=== PATIENT | female | born 1990 | race Caucasian/White ===

== ENCOUNTER 2019-12-04 17:02 | Emergency (ER) | payer SELFPAY ==
[~2019-12-04] VITALS: Ht 170.2 cm; Wt 47.7 kg
[2019-12-04] MEDS ORDERED: IV RINGERS SOLUTION,LACTATED 1,000 ML IV SCH (17:36)
--- NOTE | 2019-12-04 17:39 | PHYS DOC ---
Past History Past Medical History: No Pertinent History, Anxiety, Asthma Smoking: Cigarettes Additional Smoking Information: 1 pack q 3 days Alcohol Use: Occasionally General Adult EDM: Chief Complaint: FEVER HPI: HPI: '".. I was checking in at work this morning.. and they said my temperature was elevated.... I have been having kind of fever, chills malaise sore throat nonproductive cough....." Patient is a 29 year old female who presents with above hx and complaints, fever, malaise, sore throat, nonproductive cough and wheezing. Patient works at [employer]. 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 No recent travel outside [facility] area. Notes history of specific ill contacts other than at work. Patient has had one episode of diarrhea. No history of bad food intake. Temperature this morning was 100.2. Work to order the get rapid testing before returning to work. Patient will be off work approximately 1 week. Patient states her symptoms are like having influenza. No history immunosuppression. Does have a history of asthma. Does have a history of anx iety. Patient states when she takes steroids for her asthma causes increase in her anxiety symptoms. Review of Systems: Review of Systems: Constitutional: History of fever or chills Eyes: Denies change in visual acuity HENT: History of nasal congestion and sore throat Respiratory: History of nonproductive cough and wheezing Cardiovascular: Denies chest pain or edema GI: history of abdominal pain, nausea, diarrhea : Denies dysuria Musculoskeletal: History of generalized myalgia, myalgia, arthralgia and malaise Integument: Denies rash Neurologic: Denies headache, focal weakness or sensory changes Endocrine: Denies polyuria or polydipsia Lymphatic: Denies swollen glands Psychiatric: Denies depression or anxiety Heart Score: Risk Factors: Risk Factors: DM, Current or recent (<one month) smoker, HTN, HLP, family history of CAD, obesity. Risk Scores: Score 0 - 3: 2.5% MACE over next 6 weeks - Discharge Home Score 4 - 6: 20.3% MACE over next 6 weeks - Admit for Clinical Observation Score 7 - 10: 72.7% MACE over next 6 weeks - Early Invasive Strategies Family History: Family History: Noncontributory Allergies: Allergies: Allergies Coded Allergies Type Severity Reaction Last Updated Verified hydrocodone Allergy Unknown 12/04/19 Yes oxycodone Allergy Unknown 12/04/19 Yes Physical Exam: PE: Constitutional: Well developed, well nourished, mild distress, non-toxic appearance. [] HENT: Normocephalic, atraumatic, bilateral external ears normal, oropharynx moist, postnasal drainage, no oral exudates, nose swollen turbinates and clear rhinorrhea Eyes: PERRLA, EOMI, conjunctiva normal, no discharge. [] Neck: Normal range of motion, no tenderness, supple, no stridor. [] Cardiovascular:Heart rate regular rhythm, no murmur [] Lungs & Thorax: Bilateral breath sounds equal apex with few scattered wheezes on auscultation [] no intercostal retractions. Saturations 100% on room air Abdomen: Bowel sounds hyperactive, soft, no tenderness, no masses, no pulsatile masses. Navel studs Skin: Warm, dry, no erythema, no rash. Multiple chigger bites Back: No tenderness, no CVA tenderness. [] Extremities: No tenderness, no cyanosis, no clubbing, ROM intact, no edema. [] No cording. Neurologic: Alert and oriented X 3, normal motor function, normal sensory function, no focal deficits noted. [] Psychologic: Affect anxious , judgement normal, mood normal. [] Current Patient Data: Vital Signs: Vital Signs Date Time Temp Pulse Resp B/P (MAP) Pulse Ox O2 Delivery O2 Flow Rate FiO2 12/04/19 17:20 98.8 102 20 100/69 (79) 100 Room Air EKG: EKG: [] Radiology/Procedures: Radiology/Procedures: [][address] [address] IMAGING REPORT Signed PATIENT: KAROLINA BARNHART N ACCOUNT: [id number] : 1990 LOCATION: ER AGE: 29 SEX: F EXAM STATUS: REG ER ORD. PHYSICIAN: ANDREAS BANERJEE MD REASON: dyspnea PROCEDURE: CHEST AP ONLY AP chest. HISTORY: Dyspnea AP view was taken of the chest. Lungs are free of infiltrates. Heart is normal in size. There is no effusion. IMPRESSION: 1. No acute chest disease. Electronically signed by: Flora Ramires MD (12/04/2019 7:15 PM) [facility] DICTATED AND SIGNED BY: FLORA RAMIRES MD DATE: 12/04/191914 CC: ANDREAS BANERJEE MD; PCP,NO ~ Course & Med Decision Making: Course & Med Decision Making Pertinent Labs and Imaging studies reviewed. (See chart for details) Push fluids. Get adequate rest. Self isolate if ill. Take Tylenol and ibuprofen for discomfort. Follow-up primary care. Return if any concerns. Use MDI 2 puffs 4 times a day. Avoid smoking. Push high potassium foods. Get adequate hydration. Return if any concerns. Follow-up primary care. Consider retesting for COVID after you are off work for a week-at a center that does rapid testing. . Impression: 1. History of fever 2. Viral Syndrome. 3. Mild hypokalemia 3.4 4. Tobacco, benzodiazepines and Marijuana screen :';:+ 5.. History of anxiety [] Dragon Disclaimer: Dragon Disclaimer: This electronic medical record was generated, in whole or in part, using a voice recognition dictation system. Departure Departure: Disposition: 01 HOME/RESIDENCE PRIOR TO ADM Condition: STABLE Referrals: PCP,NO (PCP) Scripts Albuterol Sulfate (VENTOLIN HFA INHALER) 18 Gm Hfa.aer.ad 2 PUFF IH PRN Q4HRS PRN for FOR ASTHMA, #30 INHALER 0 Refills Prov: ANDREAS BAENRJEE MD 12/04/19 Justification of Admission: Justification of Admission: Justification of Admission Dx: N/A Dragon Disclaimer This chart was dictated in whole or in part using Voice Recognition software in a busy, high-work load, and often noisy Emergency Department environment. It may contain unintended and wholly unrecognized errors or omissions. Dragon Disclaimer This chart was dictated in whole or in part using Voice Recognition software in a busy, high-work load, and often noisy Emergency Department environment. It may contain unintended and wholly unrecognized errors or omissions. ANDREAS BANERJEE MD Dec 04, 2019 17:39
[2019-12-04 18:57] LABS: BASO % 0 % (0-3); EOS # 0.1 x10^3/uL (0.0-0.7); EOS % 1 % (0-3); HEMATOCRIT 39.6 % (36.0-47.0); HEMOGLOBIN 13.7 g/dL (12.0-15.5); LYMPH # 1.6 x10^3/uL (1.0-4.8); LYMPH % 21 % (24-48); MEAN CORPUSCULAR HEMOGLOBIN 34 pg (25-35); MEAN CORPUSCULAR HGB CONC 35 g/dL (31-37); MEAN CORPUSCULAR VOLUME 99 fL (79-100); MONO # 0.7 x10^3/uL (0.0-1.1); MONO % 9 % (0-9); NEUT # 5.2 x10^3uL (1.8-7.7); NEUT % 69 % (31-73); PLATELET COUNT 160 x10^3/uL (140-400); RED BLOOD COUNT 4.01 x10^6/uL (3.50-5.40); RED CELL DISTRIBUTION WIDTH 13.7 % (11.5-14.5); WHITE BLOOD COUNT 7.6 x10^3/uL (4.0-11.0)
[2019-12-04 19:00] LABS: BARBITURATES NEG (NEG); BENZODIAZEPINES POS (NEG); CANNABINOIDS POS (NEG); COCAINE NEG (NEG); METHADONE NEG (NEG); OPIATES NEG (NEG); PHENCYCLIDINE NEG (NEG)
[2019-12-04 19:04] LABS: CALCIUM 8.6 mg/dL (8.5-10.1); CREATININE 0.9 mg/dL (0.6-1.0); GFR 74.6; POTASSIUM 3.4 mmol/L (3.5-5.1)
[2019-12-04 19:06] LABS: BACTERIA,URINE 0 /HPF (0-FEW); BILIRUBIN,URINE NEG (NEG); CLARITY,URINE CLEAR; COLOR,URINE YELLOW; GLUCOSE,URINE NEG (NEG); NITRITE,URINE NEG (NEG); RBC,URINE 0 /HPF (0-2); SQUAMOUS EPITHELIAL CELL,UR FEW /LPF; WBC,URINE 0 /HPF (0-4)
[2019-12-04 19:08] LABS: AMPHETAMINE/METHAMPHETAMINE NEG (NEG)
[2019-12-04 19:10] LABS: ALBUMIN 3.6 g/dL (3.4-5.0); DIRECT BILIRUBIN 0.1 mg/dL (0.0-0.2); TOTAL BILIRUBIN 0.3 mg/dL (0.2-1.0); TOTAL PROTEIN 6.9 g/dL (6.4-8.2)
[2019-12-04 19:15] LABS: INFLUENZA A PATIENT NEGATIVE (NEGATIVE); INFLUENZA B PATIENT NEGATIVE (NEGATIVE)
[2019-12-04] MEDS ORDERED: ALBU2.5V8 IH (19:16)
--- NOTE | 2019-12-04 19:18 | RAD ---
AP chest. HISTORY: Dyspnea AP view was taken of the chest. Lungs are free of infiltrates. Heart is normal in size. There is no effusion. IMPRESSION: 1. No acute chest disease. Electronically signed by: Quang Holley MD (12/04/2019 7:15 PM) [facility]
[2019-12-04 19:20] VITALS: BP 111/67
== END 2019-12-04 19:57 | disposition home or self-care (01) ==
LOC: ER 17:02
DX: B34.9 Viral infection, unspecified (principal); E87.6 Hypokalemia; F12.10 Cannabis abuse, uncomplicated; F19.10 Other psychoactive substance abuse, uncomplicated; J45.909 Unspecified asthma, uncomplicated; R19.7 Diarrhea, unspecified; F17.210 Nicotine dependence, cigarettes, uncomplicated; Z88.5 Allergy status to narcotic agent
CPT/HCPCS: 36415; 71045; 80048; 80076; 80307; 81001; 81025; 83690; 83735; 84484; 85025; 85610; 85730; 87070; 87804; 87880; 96360; 99284; J7120